=== PATIENT | female | born 1955 | race Caucasian/White ===

== ENCOUNTER → 2016-12-09 | Outpatient (CLI) | payer OTHER ==
[~2016-12-09] VITALS: Ht 152.4 cm; Wt 88.5 kg
[~2016-12-09] MED LIST: ACTOS30 MG PO; ALLOPURINOL300 MG PO; AMARYL2 MG PO; AMARYL4 MG PO; ASTEPRO 0.15%30 ML NS; ATARAX,VISTARIL25 MG PO; ATORVASTATIN CA40 MG PO; BENTYL20 MG PO; CALTRATE 600 +1 EAC1 PO; CALTRATE 600+D1 EACH PO; CALTRATE 6001 TABLE1 PO; CALTRATE 6001 TABLET PO; CENTRUM SILVER1 EAC3 PO; CLEOCIN300 MG PO; COLCRYS0.6 MG PO; CONSTULOSE10 GM/15 M PO; DAILY VITAMIN1 EAC8 PO; Ecotrin PO; FOLIC ACID1 MG PO; GLUCOTROL5 MG PO; HYDROCODON-ACE1 EAC7 PO; HYDROXYZINE HCL50 MG PO; LASIX40 MG PO; LEVOTHYROXINE50 MCG PO; LIPITOR40 MG PO; LO-DOSE ASPIRIN81 M1 PO; LO-DOSE ASPIRIN81 M2 PO; LOPRESSOR25 MG PO; LOPRESSOR50 MG PO; LUMIGAN 0.01%; LUMIGAN 0.50 DROP/22 BOTH EYES; LYRICA75 MG PO; Lipitor PO; Lopressor PO; METOPROLOL TART50 MG PO; NASONEX17 GM BOTH NARES; NITROLINGUAL S4.9 GM MM; OXYCODONE HCL15 MG PO; PERCOCET 10/1 TABLET PO; PLAVIX75 MG PO; PRILOSEC40 MG PO; PROTONIX40 MG PO; QUESTRAN PACKET4 GM PO; ROXICODONE15 MG PO; SODIUM CHLORID500 M2 IR; SPIRONOLACTONE100 MG PO; TOPROL XL25 MG PO; TOPROL XL50 MG PO; VITAMIN D-32000 UNI1 PO; VITAMIN D-32000 UNIT PO; VITAMIN D32000 UNI1 PO; XIFAXAN550 MG PO; ZOCOR40 MG PO; ZYRTEC10 M2 PO; ZYRTEC10 M3 PO; Zestril,Prinivil PO; [UNRECOGNIZED DRUG - REMARK]; [UNRECOGNIZED DRUG - REMARK]; [UNRECOGNIZED DRUG - REMARK]; [UNRECOGNIZED DRUG - REMARK]
[2016-12-09 15:00] LABS: POINT-OF-CARE METER ID UU13113694
[2016-12-09 16:05] LABS: ANION GAP 9 MEQ/L (2-14); CHLORIDE 99 MEQ/L (99-109); POTASSIUM 3.6 MEQ/L (3.7-5.4); SAMPLE HEMOLYSIS CHECK 0; SAMPLE ICTERIC CHECK 1; SAMPLE LIPEMIA CHECK 0; SODIUM 136 MEQ/L (136-147); TOTAL BILIRUBIN 2.9 MG/DL (0.0-1.0)
[2016-12-09 16:11] LABS: ALKALINE PHOSPHATASE 112 IU/L (3-129); GFR ESTIMATE (CALCULATED) 28 mL/min/; GLUCOSE 217 mg/dL (70-99); UREA NITROGEN (BUN) 33 mg/dL (9-23)
== END | disposition home or self-care (01) ==
LOC: AMB 13:45
PROVIDERS: Anesthesiology; Internal Medicine Gastroenterology
DX: Z12.11 Encounter for screening for malignant neoplasm of colon (principal); K75.81 Nonalcoholic steatohepatitis (NASH); I85.10 Secondary esophageal varices without bleeding; K25.9 Gastric ulcer, unspecified as acute or chronic, without hemorrhage or perforation; Z86.010 Personal history of colon polyps; I86.8 Varicose veins of other specified sites; K63.5 Polyp of colon; K64.8 Other hemorrhoids; E11.9 Type 2 diabetes mellitus without complications; D64.9 Anemia, unspecified; I25.10 Atherosclerotic heart disease of native coronary artery without angina pectoris
CPT/HCPCS: 80053; 82948; 88305; 93005

== ENCOUNTER 2017-08-19 00:56 | Observation (INO) | payer OTHER ==
[~2017-08-19] VITALS: Ht 151.1 cm; Wt 98.7 kg
[2017-08-19 01:14] LABS: CREATININE 1.4 mg/dL (0.6-1.3)
[2017-08-19 01:31] LABS: EOSINOPHIL (%) 4.7 % (0-5); EOSINOPHIL COUNT 0.2 K/uL (0-0.3); HEMATOCRIT 26.9 % (36.0-46.0); IMMATURE GRANULOCYTE (%) 0.6 % (0.0-0.7); INSTRUMENT ABS NEUTROPHIL CT 2.3 K/uL; LYMPHOCYTE COUNT 0.6 K/uL (1.0-2.8); MCH 28.5 PG (29.0-34.0); MCHC 31.6 G/DL (30.0-36.0); MCV 90.3 FL (83-99); MEAN PLAT.VOLUME 10.5 uM^3 (9.5-12.4); MONOCYTE (%) 9.2 % (3-12); MONOCYTE COUNT 0.3 K/uL (0-0.8); NEUTROPHIL COUNT 2.3 K/uL (1.8-6.4); PLATELET COUNT 73 K/uL (156-360); RBC DIS.WIDTH-CV 15.7 % (11.8-14.6); RBC DIS.WIDTH-SD 51.8 % (39-53); RED BLOOD COUNT 2.98 M/uL (3.80-5.20); WHITE BLOOD COUNT 3.4 K/uL (4.1-10.2)
[2017-08-19 01:43] LABS: CHLORIDE 107 mEq/L (99-109); POTASSIUM 3.9 mEq/L (3.7-5.4); SODIUM 139 mEq/L (136-147)
[2017-08-19 01:45] LABS: GLUCOSE 277 mg/dL (70-99)
[2017-08-19 01:46] LABS: ANION GAP 10 MEQ/L (2-14)
[2017-08-19 01:49] LABS: ALKALINE PHOSPHATASE 179 IU/L (3-129); GFR ESTIMATE (CALCULATED) 35 mL/min/
[2017-08-19 01:50] LABS: INTER. NORMALIZED RATIO 1.1; PROTHROMBIN TIME 12.4 SEC (10.2-12.9); UREA NITROGEN (BUN) 16 mg/dL (9-23)
[2017-08-19 01:52] LABS: LIPASE 53 U/L (1.0-51.0)
[2017-08-19 01:53] LABS: PTT 29.9 SEC (25-37); TROP-I INTERPRETATION NEGATIVE; TROPONIN-I < 0.01 ng/mL (0.0-0.30)
[2017-08-19] MEDS ORDERED: VITAMIN D32000 UNI1 PO (07:42)
[2017-08-19] MEDS ORDERED: GLYBURIDE5 MG PO (07:43)
[2017-08-19 07:45] LABS: HDL CHOLESTEROL 22 MG/DL (Desirable>=50); LDL CHOLESTEROL 33 mg/dL (Desirable<100); NON-HDL CHOLESTEROL 82 mg/dL (Desirable<160); TOTAL CHOLESTEROL 104 mg/dL (Desirable<200); TRIGLYCERIDES 246 MG/DL (Normal: <150)
[2017-08-19] MEDS ORDERED: QUESTRAN PACKET4 GM PO (07:45)
[2017-08-19] MEDS ORDERED: ULORIC40 MG PO (07:45)
[2017-08-19 08:23] LABS: TROP-I INTERPRETATION NEGATIVE; TROPONIN-I 0.02 ng/mL (0.0-0.30)
[2017-08-19] MEDS ORDERED: FLONASE16 G1 BOTH NARES (09:18)
[2017-08-19 13:37] LABS: TROP-I INTERPRETATION NEGATIVE; TROPONIN-I 0.02 ng/mL (0.0-0.30)
[2017-08-19 14:10] VITALS: BP 144/62
[2017-08-19 17:47] LABS: POINT-OF-CARE METER ID UU14162513
[2017-08-19 19:25] LABS: METH RESISTANT S AUREUS PCR NEGATIVE (NEGATIVE)
[2017-08-19 19:37] LABS: PROBE CHECK PASS; SPECIMEN PROCESSING CONTROL PASS
[2017-08-19 19:45] VITALS: BP 110/59
[2017-08-19 21:33] LABS: POINT-OF-CARE METER ID UU13113831
[2017-08-19 23:45] VITALS: BP 123/60
[2017-08-20 04:38] VITALS: BP 110/54
[2017-08-20 05:51] LABS: HEMATOCRIT 23.3 % (36.0-46.0); MCH 29.1 PG (29.0-34.0); MCHC 32.2 G/DL (30.0-36.0); MCV 90.3 FL (83-99); MEAN PLAT.VOLUME 10.4 uM^3 (9.5-12.4); PLATELET COUNT 63 K/uL (156-360); RBC DIS.WIDTH-CV 16.2 % (11.8-14.6); RBC DIS.WIDTH-SD 52.4 % (39-53); RED BLOOD COUNT 2.58 M/uL (3.80-5.20); WHITE BLOOD COUNT 3.6 K/uL (4.1-10.2)
[2017-08-20 05:56] LABS: ALKALINE PHOSPHATASE 128 IU/L (3-129); ANION GAP 6 MEQ/L (2-14); CHLORIDE 107 MEQ/L (99-109); GFR ESTIMATE (CALCULATED) 40 mL/min/; POTASSIUM 4.1 MEQ/L (3.7-5.4); SAMPLE HEMOLYSIS CHECK 0; SAMPLE ICTERIC CHECK 0; SAMPLE LIPEMIA CHECK 0; SODIUM 140 MEQ/L (136-147); TOTAL BILIRUBIN 2.4 MG/DL (0.0-1.0); UREA NITROGEN (BUN) 19 mg/dL (9-23)
[2017-08-20 05:57] LABS: GLUCOSE 108 mg/dL (70-99)
[2017-08-20 06:23] LABS: INTER. NORMALIZED RATIO 1.2; PROTHROMBIN TIME 13.8 SEC (10.2-12.9)
[2017-08-20 08:11] LABS: POINT-OF-CARE METER ID UU14162513
[2017-08-20 08:22] VITALS: BP 121/59
[2017-08-20 11:59] VITALS: BP 134/60
[2017-08-20 12:26] LABS: POINT-OF-CARE METER ID UU14162513
[2017-08-20 13:27] LABS: HEMATOCRIT 25.5 % (36.0-46.0); MCH 29.3 PG (29.0-34.0); MCHC 32.2 G/DL (30.0-36.0); MCV 91.1 FL (83-99); PLATELET COUNT 71 K/uL (156-360); RBC DIS.WIDTH-CV 16.7 % (11.8-14.6); RBC DIS.WIDTH-SD 54.6 % (39-53); WHITE BLOOD COUNT 3.9 K/uL (4.1-10.2)
[2017-08-20 16:35] VITALS: BP 118/58
[2017-08-20 18:06] LABS: POINT-OF-CARE METER ID UU14162513
[2017-08-20 19:10] VITALS: BP 162/99
[2017-08-20 21:49] LABS: POINT-OF-CARE METER ID UU13113700
[2017-08-20 23:47] VITALS: BP 119/59
[2017-08-21 04:05] VITALS: BP 110/56
[2017-08-21 06:11] LABS: EOSINOPHIL (%) 5.4 % (0-5); EOSINOPHIL COUNT 0.2 K/uL (0-0.3); HEMATOCRIT 23.9 % (36.0-46.0); IMMATURE GRANULOCYTE (%) 0.6 % (0.0-0.7); INSTRUMENT ABS NEUTROPHIL CT 2.3 K/uL; LYMPHOCYTE COUNT 0.6 K/uL (1.0-2.8); MCHC 31.8 G/DL (30.0-36.0); MCV 91.2 FL (83-99); MEAN PLAT.VOLUME 11.3 uM^3 (9.5-12.4); MONOCYTE COUNT 0.4 K/uL (0-0.8); NEUTROPHIL (%) 65.8 % (45-76); NEUTROPHIL COUNT 2.3 K/uL (1.8-6.4); PLATELET COUNT 70 K/uL (156-360); RBC DIS.WIDTH-CV 16.6 % (11.8-14.6); RBC DIS.WIDTH-SD 54.4 % (39-53); RED BLOOD COUNT 2.62 M/uL (3.80-5.20); WHITE BLOOD COUNT 3.5 K/uL (4.1-10.2)
[2017-08-21 06:38] LABS: ANION GAP 7 MEQ/L (2-14); CHLORIDE 107 MEQ/L (99-109); GFR ESTIMATE (CALCULATED) 35 mL/min/; GLUCOSE 125 mg/dL (70-99); POTASSIUM 4.3 MEQ/L (3.7-5.4); SAMPLE HEMOLYSIS CHECK 0; SAMPLE ICTERIC CHECK 0; SAMPLE LIPEMIA CHECK 0; SODIUM 141 MEQ/L (136-147); UREA NITROGEN (BUN) 24 mg/dL (9-23)
[2017-08-21 07:39] VITALS: BP 94/53
[2017-08-21 08:25] LABS: POINT-OF-CARE METER ID UU13113700
[2017-08-21 10:38] VITALS: BP 97/52
[2017-08-21 11:37] VITALS: BP 129/61
[2017-08-21 12:52] LABS: POINT-OF-CARE METER ID UU14162513
[2017-08-21] MEDS ORDERED: AZITHROMYCIN500 M1 PO (14:19)
[2017-08-21] MEDS ORDERED: CEFTIN500 MG PO (14:19)
== END 2017-08-21 16:39 | disposition home or self-care (01) ==
LOC: EME 00:56 → 5WEST 05:42 → EDOF 05:42 → ENRESERV 05:45 → 5WEST 13:44
PROVIDERS: Emergency Medicine; Internal Medicine; Physician Assistant
DX: J18.1 Lobar pneumonia, unspecified organism (principal); R07.9 Chest pain, unspecified; K74.60 Unspecified cirrhosis of liver; I12.9 Hypertensive chronic kidney disease with stage 1 through stage 4 chronic kidney disease, or unspecified chronic kidney disease; E11.22 Type 2 diabetes mellitus with diabetic chronic kidney disease; N18.3 Chronic kidney disease, stage 3 (moderate); D61.818 Other pancytopenia; R06.02 Shortness of breath; S30.1XXA Contusion of abdominal wall, initial encounter; G47.33 Obstructive sleep apnea (adult) (pediatric); I25.10 Atherosclerotic heart disease of native coronary artery without angina pectoris; I25.2 Old myocardial infarction; Z95.5 Presence of coronary angioplasty implant and graft; E03.9 Hypothyroidism, unspecified; K27.9 Peptic ulcer, site unspecified, unspecified as acute or chronic, without hemorrhage or perforation; E78.5 Hyperlipidemia, unspecified; D64.9 Anemia, unspecified; D69.6 Thrombocytopenia, unspecified; R16.1 Splenomegaly, not elsewhere classified; R94.31 Abnormal electrocardiogram [ECG] [EKG]; M10.9 Gout, unspecified; I27.20 Pulmonary hypertension, unspecified; Z79.82 Long term (current) use of aspirin; Z91.19 Patient's noncompliance with other medical treatment and regimen; Z87.19 Personal history of other diseases of the digestive system; Z82.49 Family history of ischemic heart disease and other diseases of the circulatory system; Z83.3 Family history of diabetes mellitus; Z82.5 Family history of asthma and other chronic lower respiratory diseases; Z84.1 Family history of disorders of kidney and ureter; Z80.49 Family history of malignant neoplasm of other genital organs; Z80.8 Family history of malignant neoplasm of other organs or systems; Z88.2 Allergy status to sulfonamides
CPT/HCPCS: 71010; 74176; 74177; 80047; 80048; 80053; 80061; 82948; 83605; 83690; 84484; 85025; 85027; 85610; 85730; 86850; 86900; 86901; 87040; 87641; 90686; 93005; 99281; 99285; G0378; J0456; J0696; J1815; J2270; J3010